=== PATIENT | male | born 1985 | race Caucasian/White ===

== ENCOUNTER → 2021-10-07 | Outpatient (CLI) | payer OTHER ==
[~2021-10-07] MED LIST: BACTROBAN NASAL1 G1 TOP; IBUPROFEN800 MG PO; KEFLEX CAP 500500 MG PO; SILVADENE CREAM20 GM TOP
== END ==
LOC: EXRD 08:47
DX: R74.8 Abnormal levels of other serum enzymes (principal)
CPT/HCPCS: 76705